=== PATIENT | female | born 1975 | race Caucasian/White ===

== ENCOUNTER 2017-02-01 17:01 | Emergency (ER) | payer SELFPAY ==
[~2017-02-01] VITALS: Ht 160 cm; Wt 85.0 kg
[2017-02-01 17:03] VITALS: BP 159/90
== END 2017-02-01 19:50 | disposition left against medical advice (07) ==
LOC: EMS 17:05
DX: R30.0 Dysuria (principal); M79.89 Other specified soft tissue disorders; Z53.21 Procedure and treatment not carried out due to patient leaving prior to being seen by health care provider